=== PATIENT | female | born 1995 | race African-American/Black ===

== ENCOUNTER 2023-10-08 08:01 | Outpatient (CLI) ==
[~2023-10-08] VITALS: Ht 157.5 cm; Wt 79.7 kg
[2023-10-08] MEDS ORDERED: PRENTAB9 PO (08:39)
[2023-10-08 08:43] VITALS: BP 116/66; O2SAT 100
[2023-10-08 12:13] LABS: CHLAMYDIA DNA AMPLIFICATION NEGATIVE (NEGATIVE); GC DNA AMPLIFICATION NEGATIVE (NEGATIVE)
[2023-10-08] MEDS ORDERED: FLUC150T9 PO (13:48)
[2023-10-08] MEDS ORDERED: FLUCONAZOLE 50MG TABLET PO ONE (13:50)
== END 2023-10-08 13:40 | disposition home or self-care (01) ==
LOC: M LDO 08:01
PROVIDERS: ATTEND Advanced Practice Midwife
DX: O23.592 Infection of other part of genital tract in pregnancy, second trimester (principal); B37.9 Candidiasis, unspecified; O09.32 Supervision of pregnancy with insufficient antenatal care, second trimester; O34.12 Maternal care for benign tumor of corpus uteri, second trimester; Z3A.25 25 weeks gestation of pregnancy
CPT/HCPCS: 59025; 76811; 81001; 87086; 87661; 87810; 87850; G0463

== ENCOUNTER 2023-10-14 11:54 | Emergency (ER) | payer MEDICAID, OTHER, SELFPAY ==
[~2023-10-14] VITALS: Ht 160 cm; Wt 79.1 kg
[~2023-10-14 11:54] MED LIST: FLUC150T9 PO; PRENTAB9 PO
[2023-10-14] MEDS ORDERED: ACET325C5 PO (14:40)
[2023-10-14] MEDS ORDERED: AMOX875T PO (14:40)
[2023-10-14] MEDS ORDERED: ACETAMINOPHEN TAB 650MG DOSE (2X325MG) PO ONE (14:40)
[2023-10-14] MEDS ORDERED: NEOM10DR2 OT (14:40)
[2023-10-14 15:00] VITALS: BP 110/67; TEMP 98.1; O2SAT 98
== END 2023-10-14 15:35 | disposition home or self-care (01) ==
LOC: M ED 11:54
DX: O26.899 Other specified pregnancy related conditions, unspecified trimester (principal)